=== PATIENT | female | born 1960 | race Caucasian/White ===

== ENCOUNTER → 2019-09-30 15:38 | Outpatient (CLI) | payer OTHER, SELFPAY ==
--- NOTE | ~2019-09-30 | MR_ITS ---
EXAMINATION: MR knee LT wo con DATE: 09/30/2019 16:29 INDICATION: Anterior left knee pain TECHNIQUE: Magnetic resonance imaging (MRI) of the left knee was performed without intravenous contra st. Sequences included coronal PD-weighted FSE, coronal PD-weighted FS FSE, sagittal T2-weighted FSE , sagittal PD-weighted FS FSE and axial PD weighted fat saturated FSE. COMPARISON: None. FINDINGS: Evaluation mildly limited by small amount of motion blurring on a few sequences. Medial compartment: Near full-thickness radial tear near the posterior root of the medial meniscus. Articular cartilage i s normal. Lateral compartment: Lateral meniscus is normal with a significant portion of the meniscus anchored to a large meniscal fe moral ligament of Gilbert. Articular cartilage is normal. Patellofemoral compartment: Muscle thickness cartilage loss and fissuring along the lateral patellar facet. Cartilage thickening with mild surface regularity consistent with mild partial-thickness fibrillation at the medial side o f the of the apical ridge. Relatively large region of deep chondral ulceration involving much of the central aspect of the lateral trochlea. Chondral fissuring with a severe partial thickness cartilage loss at the trochlear groove and lateral side of the medial trochlea. Small region of subtle cortical irregularity at the inferior aspect of the lateral trochlea. Ligaments and tendons: Posterior cruciate ligament is normal. The anterior cruciate ligament demonstrates a normal angle re lative to Blumenstaat's line. It appears thickened with increased intrasubstance signal surrounding i ntact appearing linear fibers with a celery stalk appearance. Consistent with mucoid degeneration.T he medial and fibular collateral ligaments are normal. The extensor mechanism is normal. The visualiz ed medial and lateral hamstring tendons as well as the iliotibial band are normal. Fluid: Physiologic amount of fluid in the joint space. No loose osteochondral bodies identified. Osseous/other: Mild marrow edema and likely developing cystic change underlying the region of the femoral footplate of the anterior cruciate ligament. Bone marrow signal is otherwise normal with no fracture or patholo gic marrow replacing process. IMPRESSION: 1. Near full-thickness radial tear near the posterior root of the medial meniscus. 2. 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 3. Mucoid degeneration of the anterior cruciate ligament without discrete tear or secondary signs of tear. Correlate with physical exam to assess for degree of residual functional integrity. Reviewed, dictated and finalized at location A. [employer] IMPRESSION: 1. Near full-thickness radial tear near the posterior root of the medial menisc us. 2. 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 3. Mucoid degeneration of the anterior cruciate ligament without discrete tear or secondary signs of tear. Correlate with physical exam to assess for degree o f residual functional integrity.
== END ==
PROVIDERS: PCP Pediatrics Sports Medicine; Visit Provider Pediatrics Sports Medicine
DX: M25.562 Pain in left knee (principal); S83.242A Other tear of medial meniscus, current injury, left knee, initial encounter; M17.12 Unilateral primary osteoarthritis, left knee; M22.42 Chondromalacia patellae, left knee; X58.XXXA Exposure to other specified factors, initial encounter
CPT/HCPCS: 73721

== ENCOUNTER 2019-12-13 08:44 | Outpatient (CLI) | payer OTHER, SELFPAY ==
--- NOTE | ~2019-12-13 | MM_ITS ---
EXAMINATION: MM screening bucky BI w [place] HISTORY: Screening mammogram TECHNIQUE: Craniocaudal and mediolateral oblique 3-D tomosynthesis images were obtained and synthetic 2-D images were generated. CAD analysis was submitted and interpreted. COMPARISON: No prior mammogram is available for comparison at this institution. BREAST PARENCHYMAL COMPOSITION: There are scattered areas of fibroglandular density. FINDINGS: There is no evidence of suspicious mass, calcification, or architectural distortion to sugg est malignancy in either breast. There has been no suspicious interval change. IMPRESSION: 1. No mammographic evidence of malignancy. 2. Recommend routine screening mammography in one year. BI-RADS Category 1: Negative Reviewed, dictated and finalized at location A.
== END 2019-12-13 08:45 | disposition home or self-care (01) ==
LOC: ANHIMG 08:47
PROVIDERS: PCP Family Medicine; Visit Provider Nurse Practitioner Obstetrics & Gynecology
DX: Z12.31 Encounter for screening mammogram for malignant neoplasm of breast (principal)
CPT/HCPCS: 77063; 77067